=== PATIENT | male | born 1935 | race Caucasian/White ===

== ENCOUNTER → 2020-02-03 | Outpatient (CLI) | payer OTHER ==
[~2020-02-03] MED LIST: ACETAMINOPHEN325 M1 PO; ALBUTEROL2.5 MG/0.1 INH; ALLOPURINOL; ARTHROTEC 50 E1 EACH PO; CEPACOL SORE T1 EAC2; CIPROFLOXACIN500 M1 PO; COZAAR 50 MG TA50 MG PO; CYTOTEC200 MCG PO; DICLOFENAC SODI75 MG PO; DIPHENHYDRAMINE25 M3 PO; DYRENIUM100 MG PO; FLAGYL 250 MG250 MG PO; HYDROCODON-ACE1 EAC7 PO; HYDROXYZINE HCL25 M1 PO; LAMISIL250 MG PO; MELATONIN3 MG PO; NEXIUM; NEXIUM 40 MG CA40 M1 PO; PHENTERMINE H37.5 MG PO; PROBIOTIC1 EAC1 PO; SINGULAIR 10 MG10 MG PO; TAMSULOSIN HCL0.4 M1 PO; TESTOSTERONE SHOT IM; THERA-M CAPLET1 EACH PO; TRIAMTERENE-HC1 EAC1 PO; VOLTAREN50 MG PO
== END ==
LOC: CAT 16:25
PROVIDERS: ATTEND Family Medicine
DX: Z13.6 Encounter for screening for cardiovascular disorders (principal); E78.00 Pure hypercholesterolemia, unspecified; I25.10 Atherosclerotic heart disease of native coronary artery without angina pectoris